=== PATIENT | female | born 1960 | race Caucasian/White ===

== ENCOUNTER 2021-07-18 13:12 | Observation (INO) ==
[2021-07-18 14:00] LABS: Basophils # 0.1 K/mcL (0.0-0.2); Basophils % 0.4 %; Eosinophils % 0.2 %; Hematocrit 44.9 % (35.3-44.9); Immature Granulocytes % 0.9 % (0-4); Lymphocytes # 3.4 K/mcL (0.6-4.6); Lymphocytes % 19.8 %; Mean Corpuscular HGB Conc 33.4 g/dL (31.6-35.5); Mean Corpuscular Hemoglobin 30.9 pg (28.0-33.3); Mean Corpuscular Volume 92.6 fL (83.0-100.0); Mean Platelet Volume 10.3 fL (9.4-12.4); Monocytes # 1.2 K/mcL (0.0-1.3); Neutrophils # 12.1 K/mcL (1.6-8.9); Platelet Count 313 K/mcL (140-400); Red Blood Count 4.85 M/mcL (3.82-4.97); Red Cell Distribution Width 13.6 % (11.5-14.5); Segmented Neutrophils % 71.7 %; White Blood Count 16.9 K/mcL (4.3-11.1)
[2021-07-18 14:07] LABS: INR 1.2; Prothrombin Time 13.8 Seconds (9.4-12.1)
[2021-07-18 14:10] LABS: Activated Partial Thrombo Time 24.4 Seconds (26.0-36.0)
[2021-07-18 14:36] LABS: Alanine Aminotransferase 12 Units/L (7-52); Albumin/Globulin Ratio 1.3 (1.1-2.2); Alkaline Phosphatase 113 Units/L (34-104); Aspartate Amino Transferase 15 Units/L (13-39); BUN/Creatinine Ratio 6 (6-26); Bilirubin,Direct 0.1 mg/dL (0.0-0.2); Bilirubin,Indirect 0.2 mg/dL (0.0-1.0); Bilirubin,Total 0.3 mg/dL (0.3-1.0); Blood Urea Nitrogen 5 mg/dL (8-23); Calcium 8.9 mg/dL (8.6-10.3); Carbon Dioxide 24 mEq/L (23-29); Chloride 96 mEq/L (98-107); Ethanol < 10 mg/dL (Less than 10); Globulin 3.2 g/dL (2.4-3.5); Glucose 152 mg/dL (70-105); Osmolality,Calculated 272 (280-300); Potassium 2.8 mEq/L (3.5-5.1); Sodium 131 mEq/L (136-145); Thyroid Stimulating Hormone 1.038 mcIU/mL (0.340-5.600); Total Protein 7.2 g/dL (6.4-8.9); Troponin I < 0.03 ng/mL (< 0.04); eGFR For African Americans > 60 (> 60); eGFR For Non-African Americans > 60 (> 60)
[2021-07-18 15:04] LABS: Bilirubin,Urine Negative (Negative); Blood,Urine Negative (Negative); Clarity,Urine Clear (Clear); Color,Urine Colorless (Yellow); Glucose,Urine (UA) Normal (Normal); Ketones,Urine Negative (Negative); Leukocyte Esterase,Urine Negative (Negative); Nitrite,Urine Negative (Negative); PH,Urine 6.5 pH Units (5.0-8.0); Protein,Urine Negative (Neg-Trace); Specific Gravity,Urine 1.005 (1.010-1.025); Urobilinogen,Urine Normal (Normal)
[2021-07-18 16:06] LABS: Amphetamine Screen,Urine Negative ng/mL (Cutoff=1000); Barbiturate Screen,Urine Negative ng/mL (Cutoff=200); Benzodiazepines Screen,Urine Positive ng/mL (Cutoff=200); Cannabinoid Screen,Urine Negative ng/mL (Cutoff = 50); Cocaine Screen,Urine Negative ng/mL (Cutoff= 300); Opiate Screen,Urine Negative ng/mL (Cutoff=300); Phencyclidine Screen,Urine Negative ng/mL (Cutoff=25)
[2021-07-18] MEDS ORDERED: *HR* Metoprolol 5 MG/5 ML VIAL IVP ONE (16:13)
[2021-07-18] MEDS ORDERED: Ondansetron 4 MG/2 ML VIAL IVP PRN (16:25)
[2021-07-18] MEDS ORDERED: Naloxone 0.4 MG/ML INJ IVP PRN (16:25)
[2021-07-18] MEDS ORDERED: Acetaminophen 325 MG TABLET PO PRN (16:25)
[2021-07-18] MEDS ORDERED: *HR* Metoprolol 5 MG/5 ML VIAL IVP PRN ×2 (16:45→16:57)
[2021-07-18 18:00] LABS: Influenza A PCR Negative (Negative); Influenza B PCR Negative (Negative); Resp. Syncytial Virus PCR Negative (Negative); SARS-CoV-2 by PCR (In House) Negative (Negative)
[2021-07-18] MEDS: Nicotine 14 MG PATCH.TD24 TD SCH (20:03)
[2021-07-18 23:03] LABS: BUN/Creatinine Ratio 6 (6-26); Blood Urea Nitrogen 4 mg/dL (8-23); Calcium 8.5 mg/dL (8.6-10.3); Carbon Dioxide 28 mEq/L (23-29); Chloride 101 mEq/L (98-107); Glucose 148 mg/dL (70-105); Osmolality,Calculated 278 (280-300); Potassium 3.8 mEq/L (3.5-5.1); Sodium 134 mEq/L (136-145); eGFR For African Americans > 60 (> 60); eGFR For Non-African Americans > 60 (> 60)
[2021-07-19 04:18] LABS: Basophils # 0.1 K/mcL (0.0-0.2); Basophils % 0.4 %; Eosinophils # 0.1 K/mcL (0.0-0.6); Eosinophils % 0.5 %; Hematocrit 40.9 % (35.3-44.9); Immature Granulocytes % 0.7 % (0-4); Lymphocytes # 4.2 K/mcL (0.6-4.6); Lymphocytes % 32.5 %; Mean Corpuscular HGB Conc 32.3 g/dL (31.6-35.5); Mean Corpuscular Hemoglobin 30.6 pg (28.0-33.3); Mean Corpuscular Volume 94.9 fL (83.0-100.0); Mean Platelet Volume 9.5 fL (9.4-12.4); Monocytes # 0.9 K/mcL (0.0-1.3); Monocytes % 7.1 %; Neutrophils # 7.7 K/mcL (1.6-8.9); Platelet Count 284 K/mcL (140-400); Red Blood Count 4.31 M/mcL (3.82-4.97); Segmented Neutrophils % 58.8 %; White Blood Count 13.1 K/mcL (4.3-11.1)
[2021-07-19 04:32] LABS: BUN/Creatinine Ratio 6 (6-26); Blood Urea Nitrogen 4 mg/dL (8-23); Calcium 8.5 mg/dL (8.6-10.3); Carbon Dioxide 29 mEq/L (23-29); Chloride 103 mEq/L (98-107); Glucose 128 mg/dL (70-105); Magnesium 1.9 mg/dL (1.6-2.6); Osmolality,Calculated 281 (280-300); Potassium 3.8 mEq/L (3.5-5.1); Sodium 136 mEq/L (136-145); eGFR For African Americans > 60 (> 60); eGFR For Non-African Americans > 60 (> 60)
[2021-07-19 04:36] LABS: Hemoglobin 13.2 g/dL (11.5-15.4)
[2021-07-19] MEDS: Nicotine 14 MG PATCH.TD24 TD SCH (07:56)
[2021-07-19] MEDS ORDERED: Sucralfate 1 GM TABLET PO PRN (07:56)
[2021-07-19] MEDS: Apixaban 5 MG TABLET PO SCH ×2 (08:30→21:42)
[2021-07-19] MEDS: Nicotine 7 MG PATCH.TD24 TD SCH (08:30)
[2021-07-19 10:23] LABS: Potassium,Urine 9.4 mEq/L; Sodium, Urine 10.4 mEq/L
[2021-07-19] MEDS ORDERED: Albuterol 2.5 MG/3 ML NEBULIZER IH PRN (12:26)
[2021-07-19] MEDS ORDERED: QUEtiapine Fumarate 25 MG TABLET PO SCH (21:00)
[2021-07-19] MEDS ORDERED: Aspirin Enteric Coated 81 MG Tablet PO SCH (21:00)
[2021-07-19 23:54] VITALS: O2SAT 97
[2021-07-20 01:44] LABS: Hematocrit 38.7 % (35.3-44.9); Hemoglobin 12.8 g/dL (11.5-15.4); Mean Corpuscular HGB Conc 33.1 g/dL (31.6-35.5); Mean Corpuscular Hemoglobin 31.1 pg (28.0-33.3); Mean Corpuscular Volume 93.9 fL (83.0-100.0); Mean Platelet Volume 9.8 fL (9.4-12.4); Platelet Count 284 K/mcL (140-400); Red Blood Count 4.12 M/mcL (3.82-4.97); Red Cell Distribution Width 13.6 % (11.5-14.5); White Blood Count 11.9 K/mcL (4.3-11.1)
[2021-07-20 02:06] LABS: Lymphocytes # 4.5 K/mcL (0.6-4.6); Monocytes # 0.7 K/mcL (0.0-1.3); Neutrophils # 6.7 K/mcL (1.6-8.9); Reactive Lymphocytes Present (Not Present)
[2021-07-20 02:07] LABS: Platelet Estimate Normal (Normal)
[2021-07-20 02:12] LABS: BUN/Creatinine Ratio 5 (6-26); Blood Urea Nitrogen 3 mg/dL (8-23); Calcium 8.2 mg/dL (8.6-10.3); Carbon Dioxide 25 mEq/L (23-29); Chloride 99 mEq/L (98-107); Glucose 119 mg/dL (70-105); Magnesium 1.8 mg/dL (1.6-2.6); Osmolality,Calculated 274 (280-300); Phosphorous 3.5 mg/dL (2.7-4.5); Potassium 3.6 mEq/L (3.5-5.1); Sodium 133 mEq/L (136-145); eGFR For African Americans > 60 (> 60); eGFR For Non-African Americans > 60 (> 60)
[2021-07-20 07:07] VITALS: BP 115/83; PULSE 65; TEMP 97.8
[2021-07-20] MEDS: Apixaban 5 MG TABLET PO SCH (08:23)
[2021-07-20] MEDS: Nicotine 7 MG PATCH.TD24 TD SCH (08:32)
== END 2021-07-20 14:34 | disposition home or self-care (01) ==
LOC: 3BNU 13:12 → EMEROOARM 13:12 → SUATTDRO 16:04 → 3BNU 17:20
PROVIDERS: ADMIT Pharmacist; ATTEND Internal Medicine

== ENCOUNTER 2022-03-02 21:40 | Inpatient (IN) ==
[2022-03-02] MEDS ORDERED: Ringers Solution, Lactated 1,000 ML ONE (21:57)
[2022-03-02] MEDS ORDERED: Tdap (Boostrix) Vaccine 0.5 ML SYRINGE IM ONE (21:57)
[2022-03-02] MEDS ORDERED: Ringers Solution, Lactated 1,000 ML IVC ONE ×2 (21:57→23:01)
[2022-03-02 22:19] LABS: Eosinophils % 0.3 %; Mean Platelet Volume 13.1 fL (9.4-12.4)
[2022-03-02 22:20] LABS: Basophils % 0.3 %; Hematocrit 36.5 % (35.3-44.9); Hemoglobin 12.7 g/dL (11.5-15.4); Immature Granulocytes % 0.7 % (0-4); Immature Platelets 18.6 % (1.1-6.1); Lymphocytes # 3.9 K/mcL (0.6-4.6); Lymphocytes % 26.7 %; Mean Corpuscular HGB Conc 34.8 g/dL (31.6-35.5); Mean Corpuscular Hemoglobin 31.4 pg (28.0-33.3); Mean Corpuscular Volume 90.3 fL (83.0-100.0); Monocytes # 1.1 K/mcL (0.0-1.3); Monocytes % 7.3 %; Neutrophils # 9.4 K/mcL (1.6-8.9); Platelet Count 162 K/mcL (140-400); Red Blood Count 4.04 M/mcL (3.82-4.97); Red Cell Distribution Width 13.4 % (11.5-14.5); Segmented Neutrophils % 64.7 %; White Blood Count 14.5 K/mcL (4.3-11.1)
[2022-03-02 22:25] LABS: Prothrombin Time 21.7 Seconds (9.4-12.1)
[2022-03-02 22:28] LABS: Activated Partial Thrombo Time 36.9 Seconds (26.0-36.0)
[2022-03-02 22:42] LABS: Albumin 2.8 g/dL (3.5-5.7); Albumin/Globulin Ratio 0.9 (1.1-2.2); Bilirubin,Direct 0.2 mg/dL (0.0-0.2); Bilirubin,Indirect 0.3 mg/dL (0.0-1.0); Bilirubin,Total 0.5 mg/dL (0.3-1.0); Calcium 7.1 mg/dL (8.6-10.3); Globulin 3.1 g/dL (2.4-3.5); Potassium 1.9 mEq/L (3.5-5.1); Total Protein 5.9 g/dL (6.4-8.9)
[2022-03-02 22:45] LABS: Reactive Lymphocytes Present (Not Present)
[2022-03-02] MEDS ORDERED: Piperacillin/Tazobactam 3.375 GM in 0.9 % Sodium Chloride Mini Bag 100 ML IVPB ONE (22:54)
[2022-03-03] MEDS ORDERED: Potassium Effervescent 25 MEQ TABLET.EFF PO ONE (00:45)
[2022-03-03 00:51] LABS: Amorphous Sediment,Urine Few per hpf (None-Few); Bacteria,Urine Few per hpf (None-Few); Bilirubin,Urine Negative (Negative); Blood,Urine Moderate (Negative); Clarity,Urine Turbid (Clear); Color,Urine Light-Yellow (Yellow); Glucose,Urine (UA) Normal (Normal); Granular Casts,Urine Few per lpf (None Seen); Hyaline Casts,Urine Moderate per lpf (None Seen); Ketones,Urine Negative (Negative); Leukocyte Esterase,Urine Negative (Negative); Mucus,Urine Few per lpf (None-Few); Nitrite,Urine Negative (Negative); Protein,Urine 100 mg/dL (Neg-Trace); RBC,Urine 0-3 per hpf (0-3); Squamous Epithelial Cell,Urine Few per hpf (None-Few); Urobilinogen,Urine Normal (Normal); WBC,Urine 0-3 per hpf (0-3)
[2022-03-03] MEDS ORDERED: Acetaminophen 325 MG TABLET PO PRN (02:00)
[2022-03-03] MEDS ORDERED: Naloxone 0.4 MG/ML INJ IVP PRN (02:00)
[2022-03-03] MEDS ORDERED: Ringers Solution, Lactated 1,000 ML IVC SCH (03:15)
[2022-03-03 06:32] LABS: Basophils # 0.1 K/mcL (0.0-0.2); Basophils % 0.4 %; Eosinophils # 0.1 K/mcL (0.0-0.6); Eosinophils % 0.8 %; Hemoglobin 12.1 g/dL (11.5-15.4); Immature Granulocytes % 0.7 % (0-4); Lymphocytes # 3.1 K/mcL (0.6-4.6); Lymphocytes % 23.5 %; Mean Corpuscular HGB Conc 33.6 g/dL (31.6-35.5); Mean Corpuscular Hemoglobin 31.3 pg (28.0-33.3); Monocytes # 0.9 K/mcL (0.0-1.3); Neutrophils # 8.8 K/mcL (1.6-8.9); Platelet Count 164 K/mcL (140-400); Red Blood Count 3.87 M/mcL (3.82-4.97); Red Cell Distribution Width 13.7 % (11.5-14.5); Segmented Neutrophils % 67.6 %; White Blood Count 13.1 K/mcL (4.3-11.1)
[2022-03-03 06:36] LABS: VBG Ionized Calcium 0.75 mmol/L (1.15-1.35)
[2022-03-03] MEDS: RINGERS IVC SCH ×3 (06:42→23:23)
[2022-03-03] MEDS: LACTATED IVC SCH ×3 (06:42→23:23)
[2022-03-03] MEDS: POTASSIUM CHLORIDE IVC SCH ×3 (06:42→23:23)
[2022-03-03 06:44] LABS: INR 1.6; Prothrombin Time 17.9 Seconds (9.4-12.1)
[2022-03-03] MEDS ORDERED: Calcium Gluconate 1gm/50mL 1 GM/50 ML BAG IVPB ONE (06:53)
[2022-03-03 06:54] LABS: Albumin 2.7 g/dL (3.5-5.7); Bilirubin,Total 0.5 mg/dL (0.3-1.0); Globulin 2.7 g/dL (2.4-3.5); Magnesium 1.5 mg/dL (1.6-2.6); Potassium 2.2 mEq/L (3.5-5.1); Total Protein 5.4 g/dL (6.4-8.9)
[2022-03-03 08:29] LABS: Adenovirus Not Detected (Not Detect); Bordetella Pertussis Not Detected (Not Detect); Chlamydophila pneumoniae Not Detected (Not Detect); Coronavirus 229E Not Detected (Not Detect); Coronavirus HKU1 Not Detected (Not Detect); Coronavirus NL63 Not Detected (Not Detect); Coronavirus OC43 Not Detected (Not Detect); Human Metapneumovirus Not Detected (Not Detect); Human Rhinovirus/Enterovirus Not Detected (Not Detect); Influenza A Subtype 2009 H1 Not Detected (Not Detect); Influenza B Not Detected (Not Detect); Mycoplasma pneumoniae Not Detected (Not Detect); Parainfluenza Virus 1 Not Detected (Not Detect); Parainfluenza Virus 2 Not Detected (Not Detect); Parainfluenza Virus 3 Not Detected (Not Detect); Parainfluenza Virus 4 Not Detected (Not Detect); Respiratory Syncytial Virus Not Detected (Not Detect); SARS-CoV-2 Not Detected (Not Detect)
[2022-03-03] MEDS ORDERED: cefTRIAXone 1,000 MG in 0.9 % Sodium Chloride Mini Bag 100 ML IVPB SCH (09:00)
[2022-03-03] MEDS: Ondansetron 4 MG/2 ML VIAL IVP PRN (09:03)
[2022-03-03] MEDS ORDERED: Ringers Solution, Lactated 500 ML IVC ONE (09:15)
[2022-03-03 09:35] LABS: Potassium,Urine 15.4 mEq/L; Protein/Creatinine Ratio,Urine 3.25 mg/mg (0.00-0.20); Sodium, Urine 78.5 mEq/L
[2022-03-03] MEDS: Albumin Human 5% 12.5 GM/250 ML IV.SOLN IVC SCH ×2 (11:39→15:31)
[2022-03-03] MEDS ORDERED: D5% in Water 1,000 ML IVC PRN (11:44)
[2022-03-03] MEDS ORDERED: *HR* Dextrose 50 % in Water (Syg) 50 ML SYRINGE IVP PRN (11:44)
[2022-03-03] MEDS ORDERED: Dextrose Gel 15 GM/37.5 ML TUBE PO PRN ×2 (11:44)
[2022-03-03] MEDS ORDERED: *HR* Dextrose 50 % in Water (Syg) 50 ML SYRINGE ONE (11:48)
[2022-03-03] MEDS ORDERED: Hydrocortisone Sodium Succ 100 MG/2 ML VIAL IVP ONE (17:00)
[2022-03-03] MEDS: Apixaban 5 MG TABLET PO SCH (20:35)
[2022-03-03] MEDS: Hydrocortisone Sodium Succ 100 MG/2 ML VIAL IVP SCH (23:22)
[2022-03-04 00:18] LABS: Calcium 7.4 mg/dL (8.6-10.3); Potassium 4.9 mEq/L (3.5-5.1)
[2022-03-04] MEDS ORDERED: Albumin Human 5% 12.5 GM/250 ML IV.SOLN IVPB ONE (00:22)
[2022-03-04] MEDS: Ringers Solution, Lactated 1,000 ML IVC SCH ×3 (02:11→21:29)
[2022-03-04 04:54] LABS: Basophils % 0.1 %; Hematocrit 24.3 % (35.3-44.9); Immature Granulocytes % 0.9 % (0-4); Lymphocytes # 1.1 K/mcL (0.6-4.6); Mean Corpuscular HGB Conc 32.9 g/dL (31.6-35.5); Mean Corpuscular Hemoglobin 31.1 pg (28.0-33.3); Mean Corpuscular Volume 94.6 fL (83.0-100.0); Mean Platelet Volume 13.3 fL (9.4-12.4); Monocytes # 0.2 K/mcL (0.0-1.3); Monocytes % 2.1 %; Platelet Count 121 K/mcL (140-400); Red Blood Count 2.57 M/mcL (3.82-4.97); Red Cell Distribution Width 14.3 % (11.5-14.5); Segmented Neutrophils % 82.9 %; White Blood Count 7.8 K/mcL (4.3-11.1)
[2022-03-04 04:55] LABS: Neutrophils # 6.5 K/mcL (1.6-8.9)
[2022-03-04 05:14] LABS: Calcium 7.3 mg/dL (8.6-10.3); Magnesium 1.9 mg/dL (1.6-2.6); Phosphorous 2.6 mg/dL (2.7-4.5); Potassium 5.4 mEq/L (3.5-5.1)
[2022-03-04] MEDS ORDERED: Haloperidol Lactate 5 MG/ML VIAL IVP ONE (08:28)
[2022-03-04] MEDS ORDERED: Haloperidol Lactate 5 MG/ML VIAL IVP PRN (09:02)
[2022-03-04] MEDS: Hydrocortisone Sodium Succ 100 MG/2 ML VIAL IVP SCH ×3 (09:28→23:54)
[2022-03-04 09:48] LABS: Hemoglobin 8.2 g/dL (11.5-15.4); Mean Corpuscular Volume 94.6 fL (83.0-100.0); Red Cell Distribution Width 14.4 % (11.5-14.5)
[2022-03-04 09:50] LABS: Basophils % 0.2 %; Hematocrit 24.7 % (35.3-44.9); Immature Granulocytes % 1.3 % (0-4); Lymphocytes # 1.2 K/mcL (0.6-4.6); Lymphocytes % 13.7 %; Mean Corpuscular HGB Conc 33.2 g/dL (31.6-35.5); Mean Corpuscular Hemoglobin 31.4 pg (28.0-33.3); Mean Platelet Volume 13.6 fL (9.4-12.4); Monocytes # 0.3 K/mcL (0.0-1.3); Monocytes % 3.2 %; Platelet Count 129 K/mcL (140-400); Red Blood Count 2.61 M/mcL (3.82-4.97); Segmented Neutrophils % 81.6 %; White Blood Count 8.6 K/mcL (4.3-11.1)
[2022-03-04 10:12] LABS: Adenovirus F 40/41 PCR Not detected (Not detect); Astrovirus PCR Not detected (Not detect); C.difficile Toxin A/B Gene PCR Not detected (Not detect); Campylobacter by PCR Not detected (Not detect); Cryptosporidium by PCR Not detected (Not detect); Cyclospora cayetanensis PCR Not detected (Not detect); Entamoeba histolytica PCR Not detected (Not detect); Enteroaggregative E.coli(EAEC) Not detected (Not detect); Enteropathogenic E.coli(EPEC) Not detected (Not detect); Enterotoxigenic E.coli (ETEC) Not detected (Not detect); Giardia lamblia PCR Not detected (Not detect); Norovirus GI/GII PCR Not detected (Not detect); Plesiomonas shigelloides PCR Not detected (Not detect); Rotavirus A PCR Not detected (Not detect); Salmonella PCR Not detected (Not detect); Sapovirus PCR Not detected (Not detect); Shig/EnteroinvasiveE coli EIEC Not detected (Not detect); Shigalike tox-prod E coli STEC Not detected (Not detect); Vibrio PCR Not detected (Not detect); Vibrio cholerae PCR Not detected (Not detect); Yersinia enterocolitica PCR Not detected (Not detect)
[2022-03-04] MEDS: Apixaban 5 MG TABLET PO SCH (11:52)
[2022-03-04] MEDS: Aspirin Enteric Coated 81 MG Tablet PO SCH (11:52)
[2022-03-04] MEDS: Nicotine 14 MG PATCH.TD24 TD SCH (11:52)
[2022-03-05 04:50] LABS: Basophils % 0.1 %; Hemoglobin 9.1 g/dL (11.5-15.4); Mean Corpuscular Hemoglobin 31.8 pg (28.0-33.3); Red Blood Count 2.86 M/mcL (3.82-4.97)
[2022-03-05 04:52] LABS: Hematocrit 27.6 % (35.3-44.9); Immature Granulocytes % 1.6 % (0-4); Immature Platelets 17.8 % (1.1-6.1); Lymphocytes # 1.3 K/mcL (0.6-4.6); Mean Corpuscular Volume 96.5 fL (83.0-100.0); Mean Platelet Volume 13.5 fL (9.4-12.4); Monocytes # 0.4 K/mcL (0.0-1.3); Neutrophils # 12.7 K/mcL (1.6-8.9); Platelet Count 154 K/mcL (140-400); Red Cell Distribution Width 14.6 % (11.5-14.5); Segmented Neutrophils % 86.3 %; White Blood Count 14.7 K/mcL (4.3-11.1)
[2022-03-05 05:12] LABS: Calcium 7.5 mg/dL (8.6-10.3); Potassium 4.7 mEq/L (3.5-5.1)
[2022-03-05] MEDS: Ringers Solution, Lactated 1,000 ML IVC SCH (06:43)
[2022-03-05] MEDS ORDERED: Furosemide 40 MG/4 ML VIAL IVP ONE ×2 (07:47→11:57)
[2022-03-05] MEDS: Aspirin Enteric Coated 81 MG Tablet PO SCH (10:02)
[2022-03-05] MEDS: Hydrocortisone Sodium Succ 100 MG/2 ML VIAL IVP SCH (10:03)
[2022-03-05] MEDS: Metoprolol XL (24 HR) Succ 25 MG TAB.ER.24H PO SCH (10:03)
[2022-03-05] MEDS: Nicotine 14 MG PATCH.TD24 TD SCH (10:03)
[2022-03-05 13:21] LABS: ANA IgG by ELISA NONE DETECTED (None Detected)
[2022-03-05 19:33] LABS: Calcium 7.4 mg/dL (8.6-10.3); Potassium 4.1 mEq/L (3.5-5.1)
[2022-03-05] MEDS: Apixaban 5 MG TABLET PO SCH (20:34)
[2022-03-06] MEDS: Hydrocortisone Sodium Succ 100 MG/2 ML VIAL IVP SCH ×3 (00:16→15:07)
[2022-03-06 07:09] LABS: Basophils % 0.2 %; Eosinophils % 0.1 %; Hematocrit 25.6 % (35.3-44.9); Hemoglobin 8.5 g/dL (11.5-15.4); Immature Granulocytes % 1.6 % (0-4); Immature Platelets 13.5 % (1.1-6.1); Lymphocytes # 1.9 K/mcL (0.6-4.6); Lymphocytes % 14.8 %; Mean Corpuscular HGB Conc 33.2 g/dL (31.6-35.5); Mean Corpuscular Hemoglobin 31.4 pg (28.0-33.3); Mean Corpuscular Volume 94.5 fL (83.0-100.0); Monocytes # 0.6 K/mcL (0.0-1.3); Neutrophils # 9.8 K/mcL (1.6-8.9); Platelet Count 170 K/mcL (140-400); Red Blood Count 2.71 M/mcL (3.82-4.97); Red Cell Distribution Width 14.6 % (11.5-14.5); Segmented Neutrophils % 78.3 %; White Blood Count 12.5 K/mcL (4.3-11.1)
[2022-03-06 07:26] LABS: Calcium 7.3 mg/dL (8.6-10.3); Potassium 4.2 mEq/L (3.5-5.1)
[2022-03-06] MEDS: Apixaban 5 MG TABLET PO SCH ×2 (09:02→20:17)
[2022-03-06] MEDS: Metoprolol XL (24 HR) Succ 25 MG TAB.ER.24H PO SCH (09:02)
[2022-03-06] MEDS: Aspirin Enteric Coated 81 MG Tablet PO SCH (09:03)
[2022-03-06] MEDS: Nicotine 14 MG PATCH.TD24 TD SCH (09:08)
[2022-03-06] MEDS: Insulin LISPRO 300 UNITS/3 ML VIAL SUBQ SCH ×2 (12:40→16:29)
[2022-03-06 18:09] LABS: Protein/Creatinine Ratio,Urine 1.22 mg/mg (0.00-0.20)
[2022-03-06 18:12] LABS: Bacteria,Urine Few per hpf (None-Few); Bilirubin,Urine Negative (Negative); Blood,Urine Moderate (Negative); Calcium Oxalate Crystals,Urine Present per hpf; Clarity,Urine Clear (Clear); Color,Urine Colorless (Yellow); Glucose,Urine (UA) Normal (Normal); Ketones,Urine Negative (Negative); Leukocyte Esterase,Urine Negative (Negative); Mucus,Urine Few per lpf (None-Few); Nitrite,Urine Negative (Negative); Protein,Urine Trace mg/dL (Neg-Trace); RBC,Urine 0-3 per hpf (0-3); Specific Gravity,Urine 1.007 (1.010-1.025); Squamous Epithelial Cell,Urine Few per hpf (None-Few); Urobilinogen,Urine Normal (Normal); WBC,Urine 0-3 per hpf (0-3)
[2022-03-06 18:41] LABS: Calcium 7.1 mg/dL (8.6-10.3); Potassium 3.6 mEq/L (3.5-5.1)
[2022-03-06 19:05] LABS: Hepatitis B Surface Antigen Nonreactive (Nonreactive)
[2022-03-06 19:35] LABS: Estimated Average Glucose 148 mg/dl; Hemoglobin A1C 6.8 %; Hepatitis B Core IgM Nonreactive (Nonreactive)
[2022-03-06 19:38] LABS: Hepatitis A Antibody IgM Nonreactive (Nonreactive)
[2022-03-07] MEDS: Hydrocortisone Sodium Succ 100 MG/2 ML VIAL IVP SCH ×3 (00:14→16:43)
[2022-03-07 04:50] LABS: Hepatitis C Virus Antibody Nonreactive (Nonreactive)
[2022-03-07 05:39] LABS: Basophils % 0.1 %; Eosinophils % 0.1 %; Hematocrit 28.9 % (35.3-44.9); Hemoglobin 9.4 g/dL (11.5-15.4); Immature Granulocytes % 2.5 % (0-4); Lymphocytes % 13.7 %; Mean Corpuscular HGB Conc 32.5 g/dL (31.6-35.5); Mean Corpuscular Hemoglobin 31.2 pg (28.0-33.3); Mean Platelet Volume 12.8 fL (9.4-12.4); Monocytes # 0.8 K/mcL (0.0-1.3); Neutrophils # 11.7 K/mcL (1.6-8.9); Platelet Count 183 K/mcL (140-400); Red Blood Count 3.01 M/mcL (3.82-4.97); Red Cell Distribution Width 14.8 % (11.5-14.5); Segmented Neutrophils % 78.6 %; White Blood Count 14.9 K/mcL (4.3-11.1)
[2022-03-07 05:57] LABS: Magnesium 1.4 mg/dL (1.6-2.6); Phosphorous 3.5 mg/dL (2.7-4.5); Potassium 3.2 mEq/L (3.5-5.1)
[2022-03-07] MEDS: Apixaban 5 MG TABLET PO SCH (07:52)
[2022-03-07] MEDS: Metoprolol XL (24 HR) Succ 25 MG TAB.ER.24H PO SCH (07:52)
[2022-03-07] MEDS: Aspirin Enteric Coated 81 MG Tablet PO SCH (07:52)
[2022-03-07] MEDS: Nicotine 14 MG PATCH.TD24 TD SCH (07:53)
[2022-03-07] MEDS: Insulin LISPRO 300 UNITS/3 ML VIAL SUBQ SCH ×3 (07:54→16:43)
[2022-03-07] MEDS ORDERED: Potassium Phosphate 44 MEQ in 0.9 % Sodium Chloride 250 ML IVPB ONE (08:50)
[2022-03-07] MEDS: Ringers Solution, Lactated 1,000 ML IVC SCH (12:55)
[2022-03-07] MEDS: Albumin 25% 25gram/100mL 25 GM/100 ML IV.SOLN IVPB SCH (20:31)
[2022-03-07] MEDS ORDERED: Insulin LISPRO 300 UNITS/3 ML VIAL SUBQ STA (21:22)
[2022-03-08] MEDS: Hydrocortisone Sodium Succ 100 MG/2 ML VIAL IVP SCH ×3 (00:12→15:38)
[2022-03-08] MEDS: Albumin 25% 25gram/100mL 25 GM/100 ML IV.SOLN IVPB SCH ×2 (03:41→12:53)
[2022-03-08 04:03] LABS: Basophils # 0.1 K/mcL (0.0-0.2); Basophils % 0.4 %; Hematocrit 27.2 % (35.3-44.9); Hemoglobin 8.9 g/dL (11.5-15.4); Immature Granulocytes % 3.2 % (0-4); Lymphocytes # 3.3 K/mcL (0.6-4.6); Lymphocytes % 20.5 %; Mean Corpuscular HGB Conc 32.7 g/dL (31.6-35.5); Mean Corpuscular Hemoglobin 31.3 pg (28.0-33.3); Mean Corpuscular Volume 95.8 fL (83.0-100.0); Mean Platelet Volume 12.2 fL (9.4-12.4); Monocytes # 1.2 K/mcL (0.0-1.3); Monocytes % 7.5 %; Platelet Count 194 K/mcL (140-400); Red Blood Count 2.84 M/mcL (3.82-4.97); Red Cell Distribution Width 14.8 % (11.5-14.5); Segmented Neutrophils % 68.4 %; White Blood Count 16.1 K/mcL (4.3-11.1)
[2022-03-08 04:55] LABS: Calcium 6.9 mg/dL (8.6-10.3); Magnesium 1.5 mg/dL (1.6-2.6); Phosphorous 5.5 mg/dL (2.7-4.5); Potassium 2.9 mEq/L (3.5-5.1)
[2022-03-08] MEDS: Metoprolol XL (24 HR) Succ 25 MG TAB.ER.24H PO SCH (09:14)
[2022-03-08] MEDS: Magnesium Oxide 400 MG TABLET PO SCH ×2 (09:14→22:11)
[2022-03-08] MEDS: Nicotine 14 MG PATCH.TD24 TD SCH (09:14)
[2022-03-08] MEDS: Aspirin Enteric Coated 81 MG Tablet PO SCH (09:15)
[2022-03-08] MEDS: Insulin LISPRO 300 UNITS/3 ML VIAL SUBQ SCH ×3 (09:21→20:12)
[2022-03-08 12:14] LABS: Total Volume 24 Hour,Urine 2.03 Liters (0.60-1.60)
[2022-03-08 12:30] LABS: Protein/Creatinine Ratio,Urine 0.89 mg/mg (0.00-0.20); Sodium, Urine 35.6 mEq/L
[2022-03-08 14:40] LABS: Complement C3 89 mg/dL (87-200)
[2022-03-08] MEDS ORDERED: Potassium Chloride Elixir 20 MEQ/15 ML UDC PO ONE (15:39)
[2022-03-08] MEDS ORDERED: Apixaban 5 MG TABLET PO SCH (21:00)
[2022-03-09] MEDS: Hydrocortisone Sodium Succ 100 MG/2 ML VIAL IVP SCH ×4 (01:24→23:31)
[2022-03-09 06:30] LABS: Calcium 7.2 mg/dL (8.6-10.3); Magnesium 1.8 mg/dL (1.6-2.6); Phosphorous 4.3 mg/dL (2.7-4.5); Potassium 3.4 mEq/L (3.5-5.1)
[2022-03-09] MEDS ORDERED: Ringers Solution, Lactated 1,000 ML IVC ONE (06:41)
[2022-03-09] MEDS: Insulin LISPRO 300 UNITS/3 ML VIAL SUBQ SCH ×4 (07:49→21:20)
[2022-03-09 08:08] LABS: Basophils # 0.1 K/mcL (0.0-0.2); Basophils % 0.3 %; Eosinophils % 0.1 %; Hematocrit 26.8 % (35.3-44.9); Hemoglobin 8.6 g/dL (11.5-15.4); Immature Granulocytes % 2.1 % (0-4); Lymphocytes # 3.6 K/mcL (0.6-4.6); Lymphocytes % 16.7 %; Mean Corpuscular HGB Conc 32.1 g/dL (31.6-35.5); Mean Corpuscular Hemoglobin 31.3 pg (28.0-33.3); Mean Corpuscular Volume 97.5 fL (83.0-100.0); Mean Platelet Volume 12.1 fL (9.4-12.4); Monocytes # 1.7 K/mcL (0.0-1.3); Monocytes % 7.8 %; Neutrophils # 15.6 K/mcL (1.6-8.9); Platelet Count 213 K/mcL (140-400); Red Blood Count 2.75 M/mcL (3.82-4.97); Red Cell Distribution Width 15.4 % (11.5-14.5); White Blood Count 21.5 K/mcL (4.3-11.1)
[2022-03-09] MEDS ORDERED: Potassium Chloride Elixir 20 MEQ/15 ML UDC PO ONE (08:23)
[2022-03-09] MEDS ORDERED: Haloperidol Lactate 5 MG/ML VIAL IM ONE (09:39)
[2022-03-09 09:44] LABS: Adenovirus Not Detected (Not Detect); Bordetella Pertussis Not Detected (Not Detect); Chlamydophila pneumoniae Not Detected (Not Detect); Coronavirus 229E Not Detected (Not Detect); Coronavirus HKU1 Not Detected (Not Detect); Coronavirus NL63 Not Detected (Not Detect); Coronavirus OC43 Not Detected (Not Detect); Human Metapneumovirus Not Detected (Not Detect); Human Rhinovirus/Enterovirus Not Detected (Not Detect); Influenza A Subtype 2009 H1 Not Detected (Not Detect); Influenza B Not Detected (Not Detect); Mycoplasma pneumoniae Not Detected (Not Detect); Parainfluenza Virus 1 Not Detected (Not Detect); Parainfluenza Virus 2 Not Detected (Not Detect); Parainfluenza Virus 3 Not Detected (Not Detect); Parainfluenza Virus 4 Not Detected (Not Detect); Respiratory Syncytial Virus Not Detected (Not Detect); SARS-CoV-2 Not Detected (Not Detect)
[2022-03-09] MEDS ORDERED: Haloperidol Lactate 5 MG/ML VIAL IVP PRN ×2 (10:57→23:30)
[2022-03-09] MEDS: Magnesium Oxide 400 MG TABLET PO SCH ×2 (11:25→21:13)
[2022-03-09] MEDS: Nicotine 14 MG PATCH.TD24 TD SCH (11:25)
[2022-03-09] MEDS: Aspirin Enteric Coated 81 MG Tablet PO SCH (11:25)
[2022-03-09] MEDS: Metoprolol XL (24 HR) Succ 25 MG TAB.ER.24H PO SCH (11:26)
[2022-03-09 12:29] LABS: Amorphous Sediment,Urine Few per hpf (None-Few); Bilirubin,Urine Negative (Negative); Blood,Urine Small (Negative); Clarity,Urine Clear (Clear); Color,Urine Colorless (Yellow); Glucose,Urine (UA) 200 mg/dL (Normal); Hyaline Casts,Urine Few per lpf (None Seen); Ketones,Urine Negative (Negative); Leukocyte Esterase,Urine Negative (Negative); Mucus,Urine Few per lpf (None-Few); Nitrite,Urine Negative (Negative); PH,Urine 5.5 pH Units (5.0-8.0); Protein,Urine 30 mg/dL (Neg-Trace); RBC,Urine 0-3 per hpf (0-3); Renal Epithelial Cells,Urine Few per hpf (None-Few); Urobilinogen,Urine Normal (Normal)
[2022-03-09] MEDS ORDERED: *HR* Metoprolol 5 MG/5 ML VIAL IVP ONE (13:52)
[2022-03-09] MEDS ORDERED: Levalbuterol Neb 0.63 MG/3 ML IH ONE (15:57)
[2022-03-09 16:48] LABS: ABG Base Excess -9 mEq/L (-2 to 3); ABG HCO3 20 mEq/L (21-27); ABG Oxygen Saturation 95 % (95-98); ABG PCO2 59 mmHg (35-45); ABG PH 7.14 pH Units (7.32-7.45); ABG PO2 99 mmHg (85-104); ABG TCO2 22 mEq/L (20-26)
[2022-03-09] MEDS ORDERED: Ringers Solution, Lactated 1,000 ML IVC SCH ×2 (17:15→17:45)
[2022-03-09 17:33] LABS: Lactate Dehydrogenase 636 Units/L (140-271); Total Protein 5.2 g/dL (6.4-8.9)
[2022-03-09 17:47] LABS: White Blood Count 25.3 K/mcL (4.3-11.1)
[2022-03-09 17:48] LABS: Hematocrit 27.8 % (35.3-44.9); Hemoglobin 8.4 g/dL (11.5-15.4); Mean Corpuscular HGB Conc 30.2 g/dL (31.6-35.5); Mean Corpuscular Hemoglobin 31.2 pg (28.0-33.3); Mean Corpuscular Volume 103.3 fL (83.0-100.0); Nucleated Red Blood Cells 0.1 /100 WBC (0); Platelet Count 187 K/mcL (140-400); Red Blood Count 2.69 M/mcL (3.82-4.97); Red Cell Distribution Width 15.7 % (11.5-14.5)
[2022-03-09] MEDS: *HR* Metoprolol 5 MG/5 ML VIAL IVP SCH ×2 (18:23→23:30)
[2022-03-09 18:40] LABS: Lymphocytes # 2.5 K/mcL (0.6-4.6); Neutrophils # 19.7 K/mcL (1.6-8.9); Platelet Estimate Normal (Normal)
[2022-03-09] MEDS ORDERED: *HR* Heparin 5,000 UNIT/ML VIAL IVP PRN ×2 (19:05→19:09)
[2022-03-09] MEDS ORDERED: *HR* Heparin 5,000 UNIT/ML VIAL IVP ONE (19:05)
[2022-03-09] MEDS ORDERED: Heparin 25,000UNIT/250ML 1/2NS 25,000 UNIT/250 ML IV.SOLN IVC SCH ×2 (19:15)
[2022-03-09 21:54] LABS: Heparin anti-factor XA UFH 0.25 IU/mL (0.30-0.70); INR 1.1; Prothrombin Time 11.9 Seconds (9.4-12.1)
[2022-03-09 21:57] LABS: Activated Partial Thrombo Time 23.9 Seconds (26.0-36.0)
[2022-03-09 22:12] LABS: Calcium 7.6 mg/dL (8.6-10.3); Potassium 3.5 mEq/L (3.5-5.1)
[2022-03-09 22:49] LABS: Hematocrit 22.6 % (35.3-44.9); Hemoglobin 7.4 g/dL (11.5-15.4); Mean Corpuscular HGB Conc 32.7 g/dL (31.6-35.5); Mean Corpuscular Hemoglobin 31.4 pg (28.0-33.3); Mean Corpuscular Volume 95.8 fL (83.0-100.0); Mean Platelet Volume 12.1 fL (9.4-12.4); Platelet Count 180 K/mcL (140-400); Red Blood Count 2.36 M/mcL (3.82-4.97); Red Cell Distribution Width 15.3 % (11.5-14.5)
[2022-03-10] MEDS: Insulin LISPRO 300 UNITS/3 ML VIAL SUBQ SCH ×4 (00:14→18:33)
[2022-03-10] MEDS ORDERED: Ringers Solution, Lactated 250 ML IV ONE (01:15)
[2022-03-10] MEDS ORDERED: Amiodarone Premix 360 MG/200 ML BAG IVC ONE (01:45)
[2022-03-10] MEDS ORDERED: Amiodarone Premix 150 MG/100 ML BAG IVPB ONE (01:45)
[2022-03-10 04:24] LABS: ABG Base Excess -6 mEq/L (-2 to 3); ABG HCO3 25 mEq/L (21-27); ABG Oxygen Saturation 86 % (95-98); ABG PCO2 81 mmHg (35-45); ABG PH 7.11 pH Units (7.32-7.45); ABG PO2 71 mmHg (85-104); ABG TCO2 28 mEq/L (20-26)
[2022-03-10] MEDS ORDERED: Albumin 25% 25gram/100mL 25 GM/100 ML IV.SOLN IVPB ONE (04:26)
[2022-03-10 04:27] LABS: VBG HCO3 23 mEq/L (21-27); VBG PCO2 67 mmHg (41-51); VBG PH 7.13 pH Units (7.32-7.42); VBG PO2 79 mmHg (25-50)
[2022-03-10 04:36] LABS: Calcium 7.6 mg/dL (8.6-10.3); Magnesium 1.5 mg/dL (1.6-2.6); Phosphorous 6.2 mg/dL (2.7-4.5); Potassium 3.5 mEq/L (3.5-5.1)
[2022-03-10] MEDS: *HR* Metoprolol 5 MG/5 ML VIAL IVP SCH (04:37)
[2022-03-10] MEDS: Metoprolol XL (24 HR) Succ 25 MG TAB.ER.24H PO SCH (07:43)
[2022-03-10] MEDS: Aspirin Enteric Coated 81 MG Tablet PO SCH (07:43)
[2022-03-10] MEDS: Magnesium Oxide 400 MG TABLET PO SCH (08:05)
[2022-03-10 08:37] LABS: Basophils % 0.1 %; Hematocrit 22.7 % (35.3-44.9); Hemoglobin 7.2 g/dL (11.5-15.4); Immature Granulocytes % 2.9 % (0-4); Lymphocytes # 2.4 K/mcL (0.6-4.6); Lymphocytes % 10.8 %; Mean Corpuscular HGB Conc 31.7 g/dL (31.6-35.5); Mean Corpuscular Hemoglobin 31.7 pg (28.0-33.3); Mean Platelet Volume 11.7 fL (9.4-12.4); Monocytes # 2.1 K/mcL (0.0-1.3); Monocytes % 9.6 %; Neutrophils # 16.8 K/mcL (1.6-8.9); Platelet Count 149 K/mcL (140-400); Red Blood Count 2.27 M/mcL (3.82-4.97); Red Cell Distribution Width 15.6 % (11.5-14.5); Segmented Neutrophils % 76.6 %; White Blood Count 21.9 K/mcL (4.3-11.1)
[2022-03-10 08:40] LABS: VBG HCO3 26 mEq/L (21-27); VBG PCO2 63 mmHg (41-51); VBG PH 7.22 pH Units (7.32-7.42); VBG PO2 66 mmHg (25-50)
[2022-03-10 10:07] VITALS: BP 96/74; PULSE 96; TEMP 97.2; O2SAT 90
[2022-03-10] MEDS: Nicotine 14 MG PATCH.TD24 TD SCH (10:13)
[2022-03-10] MEDS: Hydrocortisone Sodium Succ 100 MG/2 ML VIAL IVP SCH ×2 (10:18→16:58)
[2022-03-10] MEDS ORDERED: *HR* HYDROmorphone (PF) 1 MG/ML SYRINGE IVP PRN (10:18)
[2022-03-10] MEDS ORDERED: *HR* LORazepam 2 MG/ML VIAL IVP PRN (10:25)
[2022-03-10] MEDS ORDERED: Bisacodyl 10 MG RECTAL SUPPOSITORY RC PRN (10:26)
[2022-03-10] MEDS ORDERED: Haloperidol Oral Conc 10 MG/5 ML UDC PO PRN (10:27)
[2022-03-10] MEDS ORDERED: *HR* LORazepam Oral Conc 2 MG/ML PO PRN (10:28)
[2022-03-10] MEDS ORDERED: Scopolamine Patch 1.5 MG PATCH.TD72 TD SCH (10:30)
[2022-03-10] MEDS: *HR* HYDROmorphone 2 MG/ML SYRINGE IVP SCH ×2 (11:10→18:01)
[2022-03-10] MEDS: Glycopyrrolate 0.2 MG/ML VIAL IVP PRN ×2 (11:12→17:00)
[2022-03-10] MEDS: Ondansetron 4 MG/2 ML VIAL IVP PRN (11:13)
[2022-03-10 11:22] LABS: Kappa Qnt Free Light Chains 71.77 mg/L (3.30-19.40); Lambda Qnt Free Light Chains 55.9 mg/L (5.71-26.30)
[2022-03-10] MEDS: Haloperidol Lactate 5 MG/ML VIAL IVP SCH ×2 (12:18→18:01)
[2022-03-10] MEDS ORDERED: Piperacillin/Tazobactam 3.375 GM in 0.9 % Sodium Chloride Mini Bag 100 ML IVPB SCH (18:00)
[2022-03-11 12:55] LABS: Urine Collection Volume 2025 mL
[2022-03-11 17:09] LABS: Alpha 2 Globulin (PEP) 0.93 g/dL (0.48-1.05); Beta Globulin (PEP) 0.66 g/dL (0.48-1.10)
[2022-03-12 07:51] LABS: IFE Reflexed NOT DONE
== END 2022-03-10 20:02 | disposition hospice, inpatient (51) | DRG 871 ==
LOC: EMEROOARM 21:40 → 2NNU 03-03 02:18 → SUATTDRO 03-03 02:18 → 2NNU 03-03 03:51 → 3ANU 03-06 14:14 → 2NENU 03-09 18:06
PROVIDERS: ADMIT Internal Medicine; ATTEND Internal Medicine